=== PATIENT | female | born 1950 | race Caucasian/White ===

== ENCOUNTER 2017-09-06 16:34 | Emergency (ER) | payer MEDICARE ==
[2017-09-06 16:48] VITALS: BP 131/64
--- NOTE | 2017-09-06 17:35 | UC ---
Throat Pain/Nasal Shar HPI - HPI Summary HPI Summary: 66 yo WF h/o MS c/o sore throat x 1 day, has h/o of MS so is concerned about catching strep infection earlier than later. Pt c/o generalized malaise, but no f/c/n/v/d, neg cough but c/o nasal congestion. - History of Current Complaint Chief Complaint: UCGeneralIllness Stated Complaint: THROAT PAIN Time Seen by Provider: 09/06/17 17:10 Onset/Duration: Sudden Onset Severity: Mild - Allergies/Home Medications Allergies/Adverse Reactions: Allergies Allergy/AdvReac Type Severity Reaction Status Date / Time Pollen Extract Allergy Unknown Unknown Verified 09/06/17 16:45 Reaction Details enviromental Allergy Mild stuffy nose Uncoded 09/06/17 16:45 perfumes Allergy Mild left arm Uncoded 09/06/17 16:45 gets numb and itching Home Medications: Home Medications Calcitriol CAP* [Rocaltrol CAP*] 0.25 cap PO DAILY 09/06/17 [History Confirmed 09/06/17] PMH/Surg Hx/FS Hx/Imm Hx - Surgical History Surgical History: Yes Surgery Procedure, Year, and Place: tonsillectomy,. LAPROSCOPY- [facility] - Social History Alcohol Use: None Substance Use Type: None Smoking Status (MU): Never Smoked Tobacco Review of Systems Constitutional: Fatigue - malaise Skin: Negative Eyes: Negative ENT: Sore Throat, Sinus Congestion Respiratory: Negative Cardiovascular: Negative Gastrointestinal: Negative Genitourinary: Negative Motor: Negative Neurovascular: Negative Musculoskeletal: Negative Neurological: Negative Psychological: Negative All Other Systems Reviewed And Are Negative: Yes Physical Exam Triage Information Reviewed: Yes Appearance: No Pain Distress Vital Signs: Initial Vital Signs Temp 36.4 C 09/06/17 16:46 Pulse 103 09/06/17 16:46 Resp 18 09/06/17 16:46 BP 131/64 09/06/17 16:46 Pulse Ox 100 09/06/17 16:46 Vital Signs Reviewed: Yes Eye Exam: Normal ENT: Positive: Pharyngeal erythema, TMs normal. Negative: Nasal congestion, Nasal drainage, Tonsillar exudate Neck exam: Normal Respiratory: Positive: Lungs clear Cardiovascular: Positive: RRR Musculoskeletal Exam: Normal Neurological Exam: Normal Psychological Exam: Normal Skin Exam: Normal Throat Pain/Nasal Course/Dx - Course Course Of Treatment: Rapid strep and flu neg, pt likely has viral illness in early phase, supportive tx advised, PO Pseudoephedrine for nasal congestion as prescribed. - Differential Dx/Diagnosis Provider Diagnoses: Viral illness, nasal congestion Discharge - Discharge Plan Condition: Stable Disposition: HOME Prescriptions: Pseudoephedrine HCL ER TAB* [Sudafed 12 Hour*] 120 mg PO BID 5 Days #10 tab.er Patient Education Materials: Viral Syndrome (ED) Referrals: Jeferson Krueger MD [Primary Care Provider] -
== END 2017-09-06 17:57 | disposition home or self-care (01) ==
LOC: UCEAST 16:34
DX: B34.9 Viral infection, unspecified (principal); R09.81 Nasal congestion
CPT/HCPCS: 87502; 87651; 99212; G0463

== ENCOUNTER 2017-12-01 17:45 | Emergency (ER) | payer MEDICARE ==
[2017-12-01 18:03] VITALS: BP 124/74
--- NOTE | 2017-12-01 18:12 | UC ---
Knee Pain HPI - HPI Summary HPI Summary: Pt presents with right knee pain for the last 5 days. She tells me that she suffers from MS and DM2. She lives alone in her apartment, but is accompanied today by her daughter. Pt says that, due to her illnesses, she uses a wheelchair when she is out, but around the house is ambulatory without assistance. During the last 5 days, however, pt has been using the wheelchair in her home due to her right knee pain. She also has not bathed every day because of this pain. Denies injury. - History of Current Complaint Chief Complaint: UCLowerExtremity Stated Complaint: KNEE PAIN Time Seen by Provider: 12/01/17 18:11 Hx Obtained From: Patient, Family/Typesetters Printer Hx Last Menstrual Period: post menopause Severity Initially: Moderate Severity Currently: Severe Pain Intensity: 9 Pain Scale Used: 0-10 Numeric Character: Aching Aggravating Factor(s): Weight Bearing Alleviating Factor(s): Rest - Allergies/Home Medications Allergies/Adverse Reactions: Allergies Allergy/AdvReac Type Severity Reaction Status Date / Time MS Pollen Extract Allergy Unknown Unknown Verified 12/01/17 18:04 [Pollen Extract] Reaction Details enviromental Allergy Mild stuffy nose Uncoded 12/01/17 18:04 perfumes Allergy Mild left arm Uncoded 12/01/17 18:04 gets numb and itching PMH/Surg Hx/FS Hx/Imm Hx - Additional Past Medical History Additional PMH: MS DM2 CKD - Surgical History Surgical History: Yes Surgery Procedure, Year, and Place: tonsillectomy,. LAPROSCOPY- [facility] - Social History Occupation: Disabled Lives: Alone Alcohol Use: None Substance Use Type: Marijuana Smoking Status (MU): Never Smoked Tobacco Review of Systems Constitutional: Negative Skin: Negative Respiratory: Negative Cardiovascular: Negative Gastrointestinal: Negative Musculoskeletal: Other: - Pain right knee Neurological: Negative Psychological: Negative All Other Systems Reviewed And Are Negative: Yes Physical Exam Triage Information Reviewed: Yes Appearance: Well-Appearing, No Pain Distress, Well-Nourished Vital Signs: Initial Vital Signs Temp 97.2 F 12/01/17 17:53 Pulse 64 12/01/17 17:53 Resp 16 12/01/17 17:53 BP 124/74 12/01/17 17:53 Pulse Ox 95 12/01/17 17:53 Vital Signs Reviewed: Yes Neck: Positive: Supple, Nontender, No Lymphadenopathy Respiratory: Positive: Lungs clear, Normal breath sounds, No respiratory distress Cardiovascular: Positive: RRR, No Murmur, Pulses Normal - Right DP and TP Musculoskeletal: Positive: Strength Intact - Right knee, ROM Intact - Right knee , No Edema - Right knee, Other: - NTTP right knee. No obvious bony deformities. No patella apprehension. Negative Doroteo, A/P drawer, Hitesh, and varus/ valgus stress. Neurological: Positive: Alert Skin: Negative: rashes, significant lesion(s) Knee Pain Course/Dx - Course Course Of Treatment: I had a long conversation with the pt regarding her knee pain. She refuses to get an XR today because she has very high anxiety and the XR table makes her have a panic attack. She tells me that she wants to "live with the pain". I will try her with Voltaren gel and an YVONNE wrap with the suspicion of osteoarthritis and have her f/u with Orthopedics for further eval and treatment. I offered her a cane or walker to use at home, but she refused. - Differential Dx/Diagnosis Provider Diagnoses: Right knee pain Discharge - Discharge Plan Condition: Stable Disposition: HOME Prescriptions: Diclofenac 1% GEL (NF) [Voltaren 1% GEL (NF)] 1 applic TOPICAL BID PRN #1 tube PRN Reason: Pain Patient Education Materials: Osteoarthritis (DC) Referrals: Jeferson Krueger MD [Primary Care Provider] - Deandre Dias MD [Medical Doctor] - If Needed Additional Instructions: If you develop a fever, shortness of breath, chest pain, new or worsening symptoms - please call your PCP or go to the ED. 1) May use the Diclofenac gel on your knee twice a day as needed for pain 2) Please call Orthopedics at the number below for further evaluation of your knee pain
== END 2017-12-01 18:57 | disposition home or self-care (01) ==
LOC: UCEAST 17:45
DX: M25.561 Pain in right knee (principal); G35 Multiple sclerosis; E11.22 Type 2 diabetes mellitus with diabetic chronic kidney disease; N18.9 Chronic kidney disease, unspecified
CPT/HCPCS: 99212; G0463

== ENCOUNTER 2018-03-31 12:25 | Emergency (ER) | payer MEDICARE ==
--- OUTSIDE RECORDS SUMMARY | 2018-03-31 13:19 | XMS REPORT ---
:1950 External Reference #:[id number] Author Organization [email or web address] Address [address] [address] Phone [phone] Care Team Providers Name Role Phone Jeferson Krueger MD Primary Care Physician Unavailable Payers Type Date Identification Numbers Payment Provider Subscriber Medicare Primary Effective: Policy Number: Medicare Lluvia Lassiter 2005 [id number] Expires: 2012 PayID: [id number] [address] [place] [address] Commercial Effective: Policy Number: saskia Dorsey/Pablo Lluvia Lassiter 2012 [id number] Options PayID: [id number] [address] [address] Attn: [place] [address] Problems Date Description Provider Status Onset: 12/19/2014 Relapsing remitting multiple sclerosis Chana Pugh M.D. Active Onset: 12/19/2014 Anxiety Chana Pugh M.D. Active Onset: 12/19/2014 Fatigue Chana Pugh M.D. Active Onset: 12/09/2016 Mild cognitive disorder Chana Pugh M.D. Active Note: MoCA 06/18: 21; MoCA 12/18: 20 Social History Type Date Description Comments ETOH Use Never used alcohol Smoking Patient is a former smoker Allergies, Adverse Reactions, Alerts Date Description Reaction Status Severity Comments 01/02/2013 NKDA active Medications Medication Date Status Form Strength Qnty SIG Indications Ordering Provider Valium 08/08/ Active Tablets 5mg 2tabs 1 by Chana Lu mouth 2 [place], hours M.D. prior to MRI may take one after an hour if still anxious and not sedated. Betaseron 01/02/ Active Kit 0.3mg 3units inject sc G35 Chana 2012 every [place], other M.D. day, send for 3 kits=3 month supply. (1 kit=1 mo supply/14 syringes) Rozerem 00/ Active Tablets 8mg 1 tab po Unknown 0000 qhs Alprazolam / Active Tablets 0.25mg 20tabs one by Unknown 0000 mouth every day Lisinopril / Active Tablets 2.5mg 30tabs 1 po qd Unknown 0000 Multivitamins / Active Capsules 30caps 1 capsule Unknown 0000 lauren;y Vitamin C / Active Tablets 1000mg 1 po qd Unknown 0000 Vitamin B-12 / Active Tablets 1 sl Unknown 0000 Sub daily Vitamin D High / Active Capsules 1000Unit 1 by Unknown Potency 0000 mouth every day Ferrous Sulfate / Active Tablets 325mg 1 by Unknown 0000 mouth a day Sertraline HCL / Active Tablets 50mg 1 by Unknown 0000 mouth every day Calcitriol / Active Capsules 0.25mcg 1 by Unknown 0000 mouth every day Fish Oil / Active Capsules 1200mg pt unsure Unknown 0000 of the dose. 2 daily Probiotic / Active Capsules 1 by Unknown 0000 mouth every day Valium 10/01/ Hx Tablets 2mg 2tabs take 1 Chana 2013 - one hour Cow[place]y, 12/16/ prior to M.D. 2017 mri, may repeat x 1 if not sedated and still anxious. Fluoxetine HCL / Hx Tablets 20mg 30tabs 1 po qd Unknown 0000 - 2017 Janumet / Hx Tablets 50-500mg 180tab 1 po bid Unknown 0000 - s 2017 Calcium / Hx Tablets 334-134-5m 1 tab po Unknown Magnesium & 0000 - g daily Zinc 2014 Vitamin D // Hx (?) 1 po Unknown 0000 - daily 2013 Fish Oil / Hx 1000mg 1 cap po Unknown 0000 - daily 2014 Boswellia / Hx Powder 1 po bid Unknown Kale Extract 0000 - 2016 Iron / Hx Tablets pt unsure Unknown 0000 - of the dose. one 2018 daily Vital Signs Date Vital Result Comment 03/04/2018 Height 63 inches 5'3" Heart Rate 80 /min BP Systolic Sitting 106 mmHg BP Diastolic Sitting 70 mmHg Respiratory Rate 16 /min 12/17/2017 Height 63 inches 5'3" Weight 146.00 lb Heart Rate 88 /min BP Systolic Sitting 98 mmHg BP Diastolic Sitting 58 mmHg Respiratory Rate 15 /min BMI (Body Mass Index) 25.9 kg/m2 12/09/2016 Height 64 inches 5'4" Weight 141.00 lb Heart Rate 84 /min BP Systolic Sitting 98 mmHg BP Diastolic Sitting 62 mmHg Respiratory Rate 14 /min BMI (Body Mass Index) 24.2 kg/m2 12/16/2015 Height 64 inches 5'4" Weight 155.00 lb Heart Rate 80 /min BP Systolic Sitting 130 mmHg BP Diastolic Sitting 76 mmHg Respiratory Rate 17 /min BMI (Body Mass Index) 26.6 kg/m2 06/19/2015 Height 64 inches 5'4" Weight 155.00 lb Heart Rate 84 /min BP Systolic Sitting 122 mmHg BP Diastolic Sitting 70 mmHg Respiratory Rate 14 /min BMI (Body Mass Index) 26.6 kg/m2 12/19/2014 Height 64 inches 5'4" Weight 158.00 lb Heart Rate 76 /min BP Systolic Sitting 110 mmHg BP Diastolic Sitting 70 mmHg Respiratory Rate 17 /min BMI (Body Mass Index) 27.1 kg/m2 06/06/2014 Height 64 inches 5'4" Weight 158.00 lb Heart Rate 100 /min BP Systolic Sitting 110 mmHg BP Diastolic Sitting 70 mmHg Respiratory Rate 16 /min BMI (Body Mass Index) 27.1 kg/m2 08/24/2013 Heart Rate 84 /min BP Systolic Sitting 112 mmHg BP Diastolic Sitting 62 mmHg Respiratory Rate 16 /min 01/02/2013 Heart Rate 90 /min BP Systolic Sitting 120 mmHg BP Diastolic Sitting 70 mmHg Respiratory Rate 16 /min Results Test Date Test Result H/L Range Note CBC Auto Diff 06/21/2017 White Blood Count 8.1 10^3/uL 3.5-10.8 Red Blood Count 3.52 10^6/uL Low 4.0-5.4 Hemoglobin 10.2 g/dL Low 12.0-16.0 Hematocrit 31 % Low 35-47 Mean Corpuscular Volume 89 fL 80-97 Mean Corpuscular Hemoglobin 29 pg 27-31 Mean Corpuscular HGB Conc 33 g/dL 31-36 Red Cell Distribution Width 14 % 10.5-15 Platelet Count 295 10^3/uL 150-450 Mean Platelet Volume 9 um3 7.4-10.4 Abs Neutrophils 5.7 10^3/uL 1.5-7.7 Abs Lymphocytes 1.7 10^3/uL 1.0-4.8 Abs Monocytes 0.5 10^3/uL 0-0.8 Abs Eosinophils 0.2 10^3/uL 0-0.6 Abs Basophils 0 10^3/uL 0-0.2 Abs Nucleated RBC 0 10^3/uL Granulocyte % 70.4 % 38-83 Lymphocyte % 21.1 % Low 25-47 Monocyte % 6.0 % 1-9 Eosinophil % 1.9 % 0-6 Basophil % 0.6 % 0-2 Nucleated Red Blood Cells % 0 Liver Function Panel 06/21/2017 Total Protein 7.5 g/dL 6.4-8.9 Albumin 4.2 g/dL 3.2-5.2 Globulin 3.3 g/dL 2-4 Albumin/Globulin Ratio 1.3 1-3 Total Bilirubin 0.30 mg/dL 0.2-1.0 Direct Bilirubin 0.00 mg/dL Low 0.03-0.18 Alkaline Phosphatase 77 U/L 34-104 Alt 15 U/L 7-52 Ast 18 U/L 13-39 Laboratory test finding 06/21/2017 Vitamin D Total 25(Oh) 45.4 ng/mL 20- 50 Comp Metabolic Panel 06/21/2017 Sodium 138 mmol/L 133-145 Potassium 3.1 mmol/L Low 3.5-5.0 Chloride 102 mmol/L 101-111 Co2 Carbon Dioxide 26 mmol/L 22-32 Anion Gap 10 mmol/L 2-11 Glucose 125 mg/dL High 70-100 Blood Urea Nitrogen 41 mg/dL High 6-24 Creatinine 2.58 mg/dL High 0.51-0.95 BUN/Creatinine Ratio 15.9 8-20 Calcium 10.7 mg/dL High 8.6-10.3 Total Protein 7.5 g/dL 6.4-8.9 Albumin 4.2 g/dL 3.2-5.2 Globulin 3.3 g/dL 2-4 Albumin/Globulin Ratio 1.3 1-3 Total Bilirubin 0.30 mg/dL 0.2-1.0 Alkaline Phosphatase 75 U/L 34-104 Alt 15 U/L 7-52 Ast 19 U/L 13-39 Egfr Non- 18.6 >60 Egfr 23.9 >60 1 CBC Auto Diff 12/09/2016 White Blood Count 9.3 10^3/uL 3.5-10.8 Red Blood Count 3.55 10^6/uL Low 4.0-5.4 Hemoglobin 10.1 g/dL Low 12.0-16.0 Hematocrit 32 % Low 35-47 Mean Corpuscular Volume 89 fL 80-97 Mean Corpuscular Hemoglobin 28 pg 27-31 Mean Corpuscular HGB Conc 32 g/dL 31-36 Red Cell Distribution Width 16 % High 10.5-15 Platelet Count 257 10^3/uL 150-450 Mean Platelet Volume 9 um3 7.4-10.4 Abs Neutrophils 6.6 10^3/uL 1.5-7.7 Abs Lymphocytes 1.8 10^3/uL 1.0-4.8 Abs Monocytes 0.6 10^3/uL 0-0.8 Abs Eosinophils 0.2 10^3/uL 0-0.6 Abs Basophils 0.1 10^3/uL 0-0.2 Abs Nucleated RBC 0 10^3/uL Granulocyte % 71.5 % 38-83 Lymphocyte % 19.2 % Low 25-47 Monocyte % 6.2 % 1-9 Eosinophil % 2.3 % 0-6 Basophil % 0.8 % 0-2 Nucleated Red Blood Cells % 0 Liver Function Panel 12/09/2016 Total Protein 7.6 g/dL 6.4-8.9 Albumin 4.4 g/dL 3.2-5.2 Globulin 3.2 g/dL 2-4 Albumin/Globulin Ratio 1.4 1-3 Total Bilirubin 0.30 mg/dL 0.2-1.0 Direct Bilirubin 0.10 mg/dL 0.03-0.18 Indirect Bilirubin 0.2 mg/dL Low 0.3-1.0 Alkaline Phosphatase 78 U/L 34-104 Alt 15 U/L 7-52 Ast 14 U/L 13-39 CBC Auto Diff 12/16/2015 White Blood Count 8.3 10^3/uL 3.5-10.8 Red Blood Count 3.71 10^6/uL Low 4.0-5.4 Hemoglobin 10.7 g/dL Low 12.0-16.0 Hematocrit 33 % Low 35-47 Mean Corpuscular Volume 88 fL 80-97 Mean Corpuscular Hemoglobin 29 pg 27-31 Mean Corpuscular HGB Conc 33 g/dL 31-36 Red Cell Distribution Width 16 % High 10.5-15 Platelet Count 247 10^3/uL 150-450 Mean Platelet Volume 9 um3 7.4-10.4 Abs Neutrophils 5.4 10^3/uL 1.5-7.7 Abs Lymphocytes 2.0 10^3/uL 1.0-4.8 Abs Monocytes 0.6 10^3/uL 0-0.8 Abs Eosinophils 0.2 10^3/uL 0-0.6 Abs Basophils 0 10^3/uL 0-0.2 Abs Nucleated RBC 0.01 10^3/uL Granulocyte % 65.1 % 38-83 Lymphocyte % 24.4 % Low 25-47 Monocyte % 7.1 % 1-9 Eosinophil % 2.8 % 0-6 Basophil % 0.6 % 0-2 Nucleated Red Blood Cells % 0.1 Liver Function Panel 12/16/2015 Total Protein 7.2 g/dL 6.4-8.9 Albumin 4.3 g/dL 3.2-5.2 Globulin 2.9 g/dL 2-4 Albumin/Globulin Ratio 1.5 1-3 Total Bilirubin 0.20 mg/dL 0.2-1.0 Direct Bilirubin 0.00 mg/dL Low 0.03-0.18 Alkaline Phosphatase 68 U/L 34-104 Alt 24 U/L 7-52 Ast 19 U/L 13-39 Laboratory test finding 12/16/2015 Vitamin D Total 25(Oh) 50.9 ng/mL High 30-50 2 Creatinine 10/03/2015 Creatinine 1.70 mg/dL High 0.51-0.95 Egfr Non- 30.2 >60 Egfr 38.8 >60 3 CBC Auto Diff 02/08/2015 White Blood Count 8.5 10^3/uL 4.8-10.8 Red Blood Count 3.47 10^6/uL Low 4.0-5.4 Hemoglobin 10.2 g/dL Low 12.0-16.0 Hematocrit 31 % Low 35-47 Mean Corpuscular Volume 89 fL 80-97 Mean Corpuscular Hemoglobin 30 pg 27-31 Mean Corpuscular HGB Conc 33 g/dL 31-36 Red Cell Distribution Width 17 % High 10.5-15 Platelet Count 274 10^3/uL 150-450 Mean Platelet Volume 8 um3 7.4-10.4 Abs Neutrophils 5.5 10^3/uL 1.5-7.7 Abs Lymphocytes 1.9 10^3/uL 1.0-4.8 Abs Monocytes 0.6 10^3/uL 0-0.8 Abs Eosinophils 0.4 10^3/uL 0-0.6 Abs Basophils 0.1 10^3/uL 0-0.2 Abs Nucleated RBC 0 10^3/uL Granulocyte % 65.1 % 38-83 Lymphocyte % 22.3 % Low 25-47 Monocyte % 6.8 % 1-9 Eosinophil % 4.8 % 0-6 Basophil % 1.0 % 0-2 Nucleated Red Blood Cells % 0 Retic Count 02/08/2015 Retic Count 1.5 % 0.5-1.5 Corrected Retic Count 1.0 % 0.5-1.5 Maturation Factor Retic 1.5 Retic Index 0.70 Mean Retic Volume 112.0 Immature Retic Fraction 0.51 RBC Retic Count 3.47 10^6/uL Low 4.6-6.2 Hematocrit for Retic CNT 31 % Low 35-47 Comp Metabolic Panel 02/08/2015 Sodium 137 mmol/L 133-145 Potassium 3.5 mmol/L 3.5-5.0 Chloride 103 mmol/L 101-111 Co2 Carbon Dioxide 24 mmol/L 22-32 Anion Gap 10 mmol/L 2-11 Glucose 101 mg/dL High 70-100 Blood Urea Nitrogen 25 mg/dL High 6-24 Creatinine 1.67 mg/dL High 0.51-0.95 BUN/Creatinine Ratio 15.0 8-20 Calcium 10.2 mg/dL 8.6-10.3 Total Protein 6.9 g/dL 6.4-8.9 Albumin 4.0 g/dL 3.2-5.2 Globulin 2.9 g/dL 2-4 Albumin/Globulin Ratio 1.4 1-3 Total Bilirubin 0.30 mg/dL 0.2-1.0 Alkaline Phosphatase 68 U/L 34-104 Alt 17 U/L 7-52 Ast 16 U/L 13-39 Egfr Non- 30.9 >60 Egfr 39.7 >60 4 Iron & Iron Binding Capacity 02/08/2015 Iron 49 g/dL Low 50-212 Unsaturated Iron Binding 326 g/dL Total Iron Binding Capacity 375 g/dL 250-450 % Iron Saturation 13 % Low 15-55 Laboratory test finding 02/08/2015 Ferritin 35.6 ng/mL 11-307 Hemoglobin A1c 6.3 % High Less than 6.0 5 Vitamin B12 And Folate Serum 12/19/2014 Vitamin B12 > 1450 pg/mL High 180- 914 6 Folate > 20.00 ng/mL >3.99 Laboratory test finding 12/19/2014 TSH (Thyroid Stimulating 1.93 IU/mL 0.34-5.60 Horm) Comp Metabolic Panel 12/19/2014 Sodium 139 mmol/L 133-145 Potassium 4.1 mmol/L 3.5-5.0 Chloride 102 mmol/L 101-111 Co2 Carbon Dioxide 28 mmol/L 22-32 Anion Gap 9 mmol/L 2-11 Glucose 103 mg/dL High 70-100 Blood Urea Nitrogen 31 mg/dL High 6-24 Creatinine 1.55 mg/dL High 0.51-0.95 BUN/Creatinine Ratio 20.0 8-20 Calcium 10.2 mg/dL 8.6-10.3 Total Protein 7.5 g/dL 6.4-8.9 Albumin 4.3 g/dL 3.2-5.2 Globulin 3.2 g/dL 2-4 Albumin/Globulin Ratio 1.3 1-3 Total Bilirubin 0.20 mg/dL 0.2-1.0 Alkaline Phosphatase 67 U/L 34-104 Alt 24 U/L 7-52 Ast 20 U/L 13-39 Egfr Non- 33.7 >60 Egfr 43.3 >60 7 CBC Auto Diff 12/19/2014 White Blood Count 8.3 10^3/uL 4.8-10.8 Red Blood Count 3.73 10^6/uL Low 4.0-5.4 Hemoglobin 10.9 g/dL Low 12.0-16.0 Hematocrit 33 % Low 35-47 Mean Corpuscular Volume 88 fL 80-97 Mean Corpuscular Hemoglobin 29 pg 27-31 Mean Corpuscular HGB Conc 33 g/dL 31-36 Red Cell Distribution Width 16 % High 10.5-15 Platelet Count 304 10^3/uL 150-450 Mean Platelet Volume 8 um3 7.4-10.4 Abs Neutrophils 5.4 10^3/uL 1.5-7.7 Abs Lymphocytes 2.0 10^3/uL 1.0-4.8 Abs Monocytes 0.5 10^3/uL 0-0.8 Abs Eosinophils 0.3 10^3/uL 0-0.6 Abs Basophils 0.1 10^3/uL 0-0.2 Abs Nucleated RBC 0 10^3/uL Granulocyte % 65.6 % 38-83 Lymphocyte % 23.6 % Low 25-47 Monocyte % 6.4 % 1-9 Eosinophil % 3.8 % 0-6 Basophil % 0.6 % 0-2 Nucleated Red Blood Cells % 0 Liver Function Panel 05/17/2014 Total Protein 7.3 g/dL 6.4-8.9 Albumin 4.1 g/dL 3.2-5.2 Globulin 3.2 g/dL 2-4 Albumin/Globulin Ratio 1.3 1-3 Total Bilirubin 0.30 mg/dL 0.2-1.0 Direct Bilirubin 0.10 mg/dL 0.03-0.18 Indirect Bilirubin 0.2 mg/dL Low 0.3-1.0 Alkaline Phosphatase 78 U/L 34-104 Alt 25 U/L 7-52 Ast 24 U/L 13-39 CBC Auto Diff 05/17/2014 White Blood Count 7.2 10^3/uL 4.8-10.8 Red Blood Count 3.51 10^6/uL Low 4.0-5.4 Hemoglobin 10.4 g/dL Low 12.0-16.0 Hematocrit 31 % Low 35-47 Mean Corpuscular Volume 88 fL 80-97 Mean Corpuscular Hemoglobin 30 pg 27-31 Mean Corpuscular HGB Conc 34 g/dL 31-36 Red Cell Distribution Width 15 % 10.5-15 Platelet Count 261 10^3/uL 150-450 Mean Platelet Volume 9 um3 7.4-10.4 Abs Neutrophils 4.7 10^3/uL 1.5-7.7 Abs Lymphocytes 1.6 10^3/uL 1.0-4.8 Abs Monocytes 0.5 10^3/uL 0-0.8 Abs Eosinophils 0.3 10^3/uL 0-0.6 Abs Basophils 0.1 10^3/uL 0-0.2 Abs Nucleated RBC 0 10^3/uL Granulocyte % 65.5 % 38-83 Lymphocyte % 22.6 % Low 25-47 Monocyte % 7.0 % 1-9 Eosinophil % 3.9 % 0-6 Basophil % 1.0 % 0-2 Nucleated Red Blood Cells % 0.1 Creatinine 08/08/2013 Creatinine 1.40 mg/dL 0.50-1.40 Egfr Non- 38.1 >60 Egfr 49.0 >60 8 Laboratory test finding 08/08/2013 Blood Urea Nitrogen 35 mg/dL High 6-24 Urinalysis 06/08/2013 Urine Color Yellow Urine Appearance Clear Urine Specific [place] 1.016 1.010-1.030 Urine Esterase Negative Negative Urine Nitrate Negative Negative Urine Urobilinogen Negative E.U./dL Negative Urine Protein 1+ mg/dL Negative Urine pH 6.0 5-9 Urine Blood Negative Negative Urine Ketones Negative mg/dL Negative Urine Bilirubin Negative Negative Urine Glucose Negative mg/dL Negative Urine Microscopic 06/08/2013 Urine WBC None Seen None Seen Urine RBC None Seen None Seen Urine Epithelial Cells 3+ Squamous /hpf None Seen Bacteria Urine 2+ None Seen Crystals Urine Calcium Oxalate /lpf None Seen Comp Metabolic Panel 06/08/2013 Sodium 141 mmol/L 133-145 Potassium 4.2 mmol/L 3.5-5.0 Chloride 103 mmol/L 101-111 Co2 Carbon Dioxide 28.0 mmol/L 22-32 Anion Gap 10.0 mmol/L 2-11 Glucose 122 mg/dL High 70-100 Blood Urea Nitrogen 27 mg/dL High 6-24 Creatinine 1.30 mg/dL 0.50-1.40 BUN/Creatinine Ratio 20.8 High 8-20 Calcium 10.5 mg/dL High 8.1-9.9 Total Protein 7.5 g/dL 6.2-8.1 Albumin 3.7 g/dL 3.2-5.2 Globulin 3.8 g/dL 2-4 Albumin/Globulin Ratio 1.0 1-3 Total Bilirubin 0.4 mg/dL 0.4-1.5 Alkaline Phosphatase 78 U/L 30-110 Alt 26 U/L 14-54 Ast 27 U/L 12-42 Egfr Non- 41.5 >60 Egfr 53.4 >60 9 Liver Function Panel 06/08/2013 Total Protein 6.5 g/dL 6.2-8.1 Albumin 3.8 g/dL 3.2-5.2 Globulin 2.7 g/dL 2-4 Albumin/Globulin Ratio 1.4 1-3 Total Bilirubin 0.5 mg/dL 0.4-1.5 Direct Bilirubin 0.1 mg/dL 0.1-0.5 Indirect Bilirubin 0.4 mg/dL 0.3-1.0 Alkaline Phosphatase 77 U/L 30-110 Alt 26 U/L 14-54 Ast 27 U/L 12-42 CBC With Manual Diff 06/08/2013 White Blood Count 6.8 10^3/uL 4.8-10.8 Red Blood Count 3.87 10^6/uL Low 4.0-5.4 Hemoglobin 11.1 g/dL Low 12.0-16.0 Hematocrit 34 % Low 35-47 Mean Corpuscular Volume 88 fL 80-97 Mean Corpuscular Hemoglobin 29 pg 27-31 Mean Corpuscular HGB Conc 33 g/dL 31-36 Red Cell Distribution Width 15 % 10.5-15 Platelet Count 236 10^3/uL 150-450 Mean Platelet Volume 9 um3 7.4-10.4 Abs Neutrophils 4.3 10^3/uL 1.5-7.7 Abs Lymphocytes 1.8 10^3/uL 1.0-4.8 Abs Monocytes 0.4 10^3/uL 0-0.8 Abs Eosinophils 0.4 10^3/uL 0-0.6 Abs Basophils 0 10^3/uL 0-0.2 Abs Nucleated RBC 0 10^3/uL Neutrophil % 59 % 38-83 Lymphocytes % 30 % 25-47 Monocytes % 4 % 0-13 Eosinophils % 7 % High 0-6 RBC Morphology Normal Normal 1 Because ethnic data is not always readily available, this report includes an eGFR for both -Americans and non- Americans. The National Kidney Disease Education Program (NKDEP) does not endorse the use of the MDRD equation for patients that are not between the ages of 18 and 70, are , have extremes of body size, muscle mass, or nutritional status, or are non- or non-. According to the National Kidney Foundation, irrespective of diagnosis, the stage of the disease is based on the level of kidney function: Stage Description GFR(mL/min/1.73 m(2)) 1 Kidney damage with normal or decreased GFR 90 2 Kidney damage with mild decrease in GFR 60-89 3 Moderate decrease in GFR 30-59 4 Severe decrease in GFR 15-29 5 Kidney failure <15 (or dialysis) 2 August or later 3 Because ethnic data is not always readily available, this report includes an eGFR for both -Americans and non- Americans. The National Kidney Disease Education Program (NKDEP) does not endorse the use of the MDRD equation for patients that are not between the ages of 18 and 70, are , have extremes of body size, muscle mass, or nutritional status, or are non- or non-. According to the National Kidney Foundation, irrespective of diagnosis, the stage of the disease is based on the level of kidney function: Stage Description GFR(mL/min/1.73 m(2)) 1 Kidney damage with normal or decreased GFR 90 2 Kidney damage with mild decrease in GFR 60-89 3 Moderate decrease in GFR 30-59 4 Severe decrease in GFR 15-29 5 Kidney failure <15 (or dialysis) 4 Because ethnic data is not always readily available, this report includes an eGFR for both -Americans and non- Americans. The National Kidney Disease Education Program (NKDEP) does not endorse the use of the MDRD equation for patients that are not between the ages of 18 and 70, are , have extremes of body size, muscle mass, or nutritional status, or are non- or non-. According to the National Kidney Foundation, irrespective of diagnosis, the stage of the disease is based on the level of kidney function: Stage Description GFR(mL/min/1.73 m(2)) 1 Kidney damage with normal or decreased GFR 90 2 Kidney damage with mild decrease in GFR 60-89 3 Moderate decrease in GFR 30-59 4 Severe decrease in GFR 15-29 5 Kidney failure <15 (or dialysis) 5 Therapeutic target for the treatment of diabetes Mellitus patients is <7% HBA1C, and in selective patients <6.0%.Please refer to [place] [employer] Diabetic care guidelines for further information. 6 Normal Range 180 to 914 Indeterminate Range 145 to 180 Deficient Range <145 7 Because ethnic data is not always readily available, this report includes an eGFR for both -Americans and non- Americans. The National Kidney Disease Education Program (NKDEP) does not endorse the use of the MDRD equation for patients that are not between the ages of 18 and 70, are , have extremes of body size, muscle mass, or nutritional status, or are non- or non-. According to the National Kidney Foundation, irrespective of diagnosis, the stage of the disease is based on the level of kidney function: Stage Description GFR(mL/min/1.73 m(2)) 1 Kidney damage with normal or decreased GFR 90 2 Kidney damage with mild decrease in GFR 60-89 3 Moderate decrease in GFR 30-59 4 Severe decrease in GFR 15-29 5 Kidney failure <15 (or dialysis) 8 Because ethnic data is not always readily available, this report includes an eGFR for both -Americans and non- Americans. The National Kidney Disease Education Program (NKDEP) does not endorse the use of the MDRD equation for patients that are not between the ages of 18 and 70, are , have extremes of body size, muscle mass, or nutritional status, or are non- or non-. According to the National Kidney Foundation, irrespective of diagnosis, the stage of the disease is based on the level of kidney function: Stage Description GFR(mL/min/1.73 m(2)) 1 Kidney damage with normal or decreased GFR 90 2 Kidney damage with mild decrease in GFR 60-89 3 Moderate decrease in GFR 30-59 4 Severe decrease in GFR 15-29 5 Kidney failure <15 (or dialysis) 9 Because ethnic data is not always readily available, this report includes an eGFR for both -Americans and non- Americans. The National Kidney Disease Education Program (NKDEP) does not endorse the use of the MDRD equation for patients that are not between the ages of 18 and 70, are , have extremes of body size, muscle mass, or nutritional status, or are non- or non-. According to the National Kidney Foundation, irrespective of diagnosis, the stage of the disease is based on the level of kidney function: Stage Description GFR(mL/min/1.73 m(2)) 1 Kidney damage with normal or decreased GFR 90 2 Kidney damage with mild decrease in GFR 60-89 3 Moderate decrease in GFR 30-59 4 Severe decrease in GFR 15-29 5 Kidney failure <15 (or dialysis) Procedures Date CPT Code Description Status 01/19/2018 93915 Nerve Conduction 03-04 Studies Completed Encounters Type Date Location Provider CPT E/M Dx Office Visit 12/17/2017 3:15p [facility] Chana Pugh M.D. 30830 [facility] [employer] F41.9 G31.84 R42 R53.83 R20.2 Office Visit 12/09/2016 11:00a [facility] Chana Pugh M.D. 55372 [facility] [employer] [facility] F41.9 R42 G31.84 Office Visit 12/16/2015 1:30p [facility] Chana Pugh M.D. 21643 [facility] R53.83 Z79.899 F41.9 Office Visit 06/19/2015 1:30p [facility] Chana Pugh M.D. 74057 340 [facility] 780.79 300.00 799.59 268.9 Office Visit 12/19/2014 1:00p [facility] Chana Pugh M.D. 82272 [address] [facility] 780.79 300.00 799.59 Office Visit 06/06/2014 1:00p [facility] Chana Pugh M.D. 48091 340 [facility] 780.79 Office Visit 08/24/2013 2:30p [facility] Chana Pugh M.D. 33814 340 [facility] Office Visit 06/16/2013 2:00p [facility] Chana Pugh M.D. 17210 340 [facility] Office Visit 01/02/2013 3:00p [facility] Chana Pugh M.D. 38440 340 [facility] 780.79 300.00 Office Visit 07/04/2012 2:45p [facility] Chana Pugh M.D. 86910 [address] [facility] 780.79 300.02 Plan of Care Future Appointment(s):09/09/2018 3:00 pm - Chana Pugh M.D. at [facility] [address]03/04/2018 - Chana Pugh M.D.G35 Multiple sclerosisFollow up:6 months (30 min)F41.9 Anxiety disorder, nnodiljvageO39.84 Mild cognitive impairment, so stated
[2018-03-31 14:21] VITALS: BP 127/78
--- NOTE | 2018-03-31 18:30 | ED ---
Rashid Anton Angela, scribed for Syed Gardner MD on 03/31/18 at 1313 . Psychiatric Complaint - HPI Summary HPI Summary: This pt is a 67 y/o female presenting to [facility] via EMS for a panic attack today. Pt reports she has been having panic attacks "for a long time." She states she takes medications to deal with this. Today her neighbor called the ambulance as the pt was not moving and not acting right. Pt reports "I think my neighbor jumped the gun today." She states her neighbor has never witnessed her panic attacks in the past and did not know what was wrong with the pt. Pt denies SI or HI thoughts/plan. Per EMS pt was sitting in the hallway and not moving. EMS reports the pt's neighbor stated pt is not taking care of herself at home. Pt admits to taking all her medications as prescribed, but she has not taken them today yet as she has not had the chance to. She ambulates at home independently but states she uses a wheelchair when she is out due to her MS. Pt is followed up by Dr. Pugh for MS. - History Of Current Complaint Chief Complaint: EDGeneral Time Seen by Provider: 03/31/18 13:00 Hx Obtained From: Patient Hx Last Menstrual Period: post menopause Onset/Duration: Sudden Onset, Still Present Severity Initially: Moderate Severity Currently: None Character: Anxious Aggravating Factor(s): Nothing Alleviating Factor(s): Nothing Has Suicidal: Denies: Thoughts, With A Plan Has Homicidal: Denies: Thoughts, With A Plan - Allergies/Home Medications Allergies/Adverse Reactions: Allergies Allergy/AdvReac Type Severity Reaction Status Date / Time MS Pollen Extract Allergy Unknown Unknown Verified 02/10/18 14:54 [Pollen Extract] Reaction Details enviromental Allergy Mild stuffy nose Uncoded 02/10/18 14:54 perfumes Allergy Mild left arm Uncoded 02/10/18 14:54 gets numb and itching Home Medications: Home Medications ALPRAZolam TAB* [Xanax TAB*] 0.25 mg PO Q6H PRN MDD 4 03/31/18 [History Confirmed 03/31/18] Interferon Beta-1B [Betaseron] 0.3 mg SC Q2D 03/31/18 [History Confirmed ] Lisinopril TAB* [Prinivil TAB*] 2.5 mg PO DAILY 03/31/18 [History Confirmed ] Ramelteon (NF) [Rozerem (NF)] 8 mg PO BEDTIME 03/31/18 [History Confirmed ] Sertraline* [Zoloft*] 50 mg PO DAILY 03/31/18 [History Confirmed 03/31/18] PMH/Surg Hx/FS Hx/Imm Hx Endocrine/Hematology History: Reports: Hx Diabetes Cardiovascular History: Reports: Hx Hypertension - MEDS, Other Cardiovascular Problems/Disorders - murmer as a child Denies: Hx Pacemaker/ICD Respiratory History: Reports: Other Respiratory Problems/Disorders - sensative to perfumes, detergents per pt Denies: Hx Asthma GI History: Reports: Other GI Disorders - lump RLQ for 1 month History: Reports: Hx Renal Disease - CHRONIC RENAL INSUFFICIENCY, Other Problems/Disorders - hx MS, occassional bladder fulness sensation Musculoskeletal History: Reports: Other Musculoskeletal History - MS dx at age 16, uses WC for support Sensory History: Denies: Hx Hearing Aid Neurological History: Reports: Other Neuro Impairments/Disorders - hx panic disorder Psychiatric History: Reports: Hx Panic Disorder - ONCE SHE GETS ONTO TABLE SHE IS FINE/DIFFICULT GETTING ON TABLE - Surgical History Surgery Procedure, Year, and Place: tonsillectomy,. LAPROSCOPY- [facility]ALLOP[facility] TUBES Infectious Disease History: No Infectious Disease History: Denies: Hx Clostridium Difficile, Hx Hepatitis, Hx Human Immunodeficiency Virus (HIV), Hx of Known/Suspected MRSA, Hx Shingles, Hx Tuberculosis, Hx Known/ Suspected VRE, Hx Known/Suspected VRSA, History Other Infectious Disease, Traveled Outside the [place] in Last 30 Days - Family History Known Family History: Negative: Cardiac Disease - Social History Alcohol Use: None Substance Use Type: Reports: Marijuana Smoking Status (MU): Never Smoked Tobacco Review of Systems Negative: Fever, Chills Eyes: Negative Negative: Chest Pain Negative: Shortness Of Breath Gastrointestinal: Negative Psychological: Other - POS: panic attack Negative: Other - SI or HI All Other Systems Reviewed And Are Negative: Yes Physical Exam - Summary Physical Exam Summary: Appearance: The patient is well-nourished in no acute distress and in no acute pain. Skin: The skin is warm and dry and skin color reflects adequate perfusion. HEENT: The head is normocephalic and atraumatic. The pupils are equal and reactive. The conjunctivae are clear and without drainage. Nares are patent and without drainage. Mouth reveals moist mucous membranes and the throat is without erythema and exudate. The external ears are intact. The ear canals are patent and without drainage. The tympanic membranes are intact. Neck: the neck is supple with full range of motion and non-tender. There are no carotid bruits. There is no neck vein distension. Respiratory: Chest is non-tender. Lungs are clear to auscultation and breath sounds are symmetrical and equal. Cardiovascular: Heart is regular rate and rhythm. There is no murmur or rub auscultated. There is no peripheral edema and pulses are symmetrical and equal. Abdomen: The abdomen is soft and non-tender. There are normal bowel sounds heard in all four quadrants and there is no organomegaly palpated. Musculoskeletal: There is no back tenderness noted. Extremities are non-tender with full range of motion. There is good capillary refill. There is no peripheral edema or calf tenderness elicited. Neurological: Patient is alert and oriented to person, place and time. The patient has symmetrical motor strength in all four extremities. Cranial nerves are grossly intact. Deep tendon reflexes are symmetrical and equal in all four extremities. Psychiatric: The patient has an appropriate affect and does not exhibit any anxiety or depression. Triage Information Reviewed: Yes Vital Signs On Initial Exam: Initial Vitals Temp Pulse Resp BP Pulse Ox 97.6 F 88 12 129/66 98 03/31/18 12:38 03/31/18 12:38 03/31/18 12:38 03/31/18 12:38 03/31/18 12:38 Vital Signs Reviewed: Yes Diagnostics - Vital Signs Vital Signs Temp Pulse Resp BP Pulse Ox 03/31/18 12:38 97.6 F 88 12 129/66 98 - Laboratory Lab Statement: Any lab studies that have been ordered have been reviewed, and results considered in the medical decision making process. Course/Dx - Course Course Of Treatment: Ms. Lassiter presents by EMS. They report that the patient was very difficult to deal with and refusing to move out of the hallway of the place where she lives. She finally allowed them to go upstairs and get her on benzodiazepine that she takes for panic attacks and she took some. By the time she got to the emergency department she was feeling fine and behaving normally she reassured me that this was typical for her panic attacks and she was not feeling as though she was in any acute danger or danger to anyone else. - Differential Dx/Clinical Impression Provider Diagnosis: Panic attack Discharge - Sign-Out/Discharge Documenting (check all that apply): Discharge/Admit/Transfer - Discharge - Discharge Plan Condition: Stable Disposition: HOME Patient Education Materials: Panic Attack (ED) Referrals: Jeferson Krueger MD [Primary Care Provider] - Additional Instructions: Please follow up with your primary care provider in 2-3 days. RETURN TO THE ED FOR ANY WORSENING SYMPTOMS. - Billing Disposition and Condition Condition: STABLE Disposition: Home The documentation as recorded by the Rashid gomez Angela accurately reflects the service I personally performed and the decisions made by me, Syed Gardner MD.
== END 2018-03-31 13:27 | disposition home or self-care (01) ==
LOC: ED 12:25
DX: F41.0 Panic disorder [episodic paroxysmal anxiety] (principal); E11.9 Type 2 diabetes mellitus without complications; Z86.79 Personal history of other diseases of the circulatory system
CPT/HCPCS: 99283

== ENCOUNTER 2020-07-02 12:57 | Observation (INO) ==
[2020-07-02] MEDS ORDERED: NS 0.9% 1000 ml BAG 1,000 ML IV ONE (13:16)
[2020-07-02 14:57] LABS: ABS Eosinophils 0.2 10^3/ul (0-0.6); ABS Lymphocytes 1.2 10^3/ul (1.0-4.8); ABS Monocytes 0.4 10^3/ul (0-0.8); ABS Neutrophils 3.9 10^3/ul (1.5-7.7); Eosinophil % 4.1 %; Hematocrit 25 % (35-47); Hemoglobin 8.8 g/dL (12.0-16.0); Lymphocyte % 21.4 %; Mean Corpuscular HGB Conc 35 g/dL (31-36); Mean Corpuscular Hemoglobin 31 pg (27-31); Mean Corpuscular Volume 89 fL (80-97); Mean Platelet Volume 8.5 fL (7.4-10.4); Platelet Count 180 10^3/uL (150-450); Red Blood Count 2.85 10^6 /uL (3.70-4.87); Red Cell Distribution Width 17 % (10-15); White Blood Count 5.7 10^3/uL (3.5-10.8)
[2020-07-02 15:17] LABS: Troponin I 0.01 ng/mL (<0.03)
[2020-07-02 15:19] LABS: Albumin 4.4 g/dL (3.2-5.2); Albumin/Globulin Ratio 1.2 (1-3); BUN/Creatinine Ratio 18.8 (8-20); Calcium 11.2 mg/dL (8.6-10.3); EGFR African American 24.3 (>60); EGFR Non-African American 20.1 (>60); Globulin 3.6 g/dL (2-4); Magnesium 1.9 mg/dL (1.9-2.7); Potassium 3.8 mmol/L (3.5-5.0); Total Bilirubin 0.3 mg/dL (0.2-1.0)
[2020-07-02 15:25] LABS: TSH Ultra Thyroid Stim Horm 2.26 mcIU/mL (0.34-5.60)
[2020-07-02] MEDS ORDERED: Iron Sucrose 20 MG/ML 5 ML VIAL IV PUSH SCH (16:00)
[2020-07-02] MEDS ORDERED: NS 0.9% IVPB SCH (18:30)
[2020-07-02] MEDS ORDERED: IRON SUCROSE IVPB SCH (18:30)
[2020-07-02 21:05] LABS: Urine Appearance Cloudy; Urine Bilirubin Negative (Negative); Urine Blood Negative (Negative); Urine Color Yellow; Urine Glucose Negative (Negative); Urine Ketones Negative (Negative); Urine Nitrite Negative (Negative); Urine Protein 1+(30 mg/dL) (Negative); Urine Specific Gravity 1.009 (1.010-1.030); Urine Urobilinogen Negative (Negative)
[2020-07-02 21:11] LABS: Urine Bacteria 1+ (Absent); Urine Red Blood Cell Trace(0-2/hpf) (Absent); Urine Squamous Epithelial Cell Present (Absent); Urine White Blood Cell Trace(0-5/hpf) (Absent)
[2020-07-02] MEDS: Heparin 5000 UNITS/ML 1 mL VIAL SUBCUT SCH (22:35)
[2020-07-03] MEDS: Heparin 5000 UNITS/ML 1 mL VIAL SUBCUT SCH ×3 (05:33→22:27)
[2020-07-03 08:53] LABS: ABS Eosinophils 0.3 10^3/ul (0-0.6); ABS Lymphocytes 1.2 10^3/ul (1.0-4.8); ABS Monocytes 0.3 10^3/ul (0-0.8); ABS Neutrophils 3.4 10^3/ul (1.5-7.7); Eosinophil % 5.3 %; Hematocrit 23 % (35-47); Hemoglobin 7.2 g/dL (12.0-16.0); Lymphocyte % 22.1 %; Mean Corpuscular HGB Conc 32 g/dL (31-36); Mean Corpuscular Hemoglobin 29 pg (27-31); Mean Corpuscular Volume 89 fL (80-97); Mean Platelet Volume 8.2 fL (7.4-10.4); Platelet Count 173 10^3/uL (150-450); Red Blood Count 2.53 10^6 /uL (3.70-4.87); Red Cell Distribution Width 17 % (10-15); White Blood Count 5.2 10^3/uL (3.5-10.8)
[2020-07-03] MEDS ORDERED: Influenza VAC *QUAD* 2020-21* 0.5 ML SYRINGE IM ONE (09:00)
[2020-07-03 09:12] LABS: BUN/Creatinine Ratio 20.1 (8-20); Calcium 10.2 mg/dL (8.6-10.3); EGFR African American 27.6 (>60); EGFR Non-African American 22.8 (>60); Potassium 4.1 mmol/L (3.5-5.0)
[2020-07-03] MEDS ORDERED: Iron Sucrose 200 MG in NS 0.9% 100 ml BAG 100 ML IVPB ONE (15:00)
[2020-07-04] MEDS: Heparin 5000 UNITS/ML 1 mL VIAL SUBCUT SCH ×2 (05:44→15:11)
[2020-07-04 06:37] LABS: ABS Eosinophils 0.2 10^3/ul (0-0.6); ABS Lymphocytes 1.3 10^3/ul (1.0-4.8); ABS Monocytes 0.4 10^3/ul (0-0.8); Eosinophil % 4.1 %; Hematocrit 22 % (35-47); Hemoglobin 7.4 g/dL (12.0-16.0); Lymphocyte % 21.5 %; Mean Corpuscular HGB Conc 34 g/dL (31-36); Mean Corpuscular Hemoglobin 30 pg (27-31); Mean Corpuscular Volume 87 fL (80-97); Mean Platelet Volume 7.7 fL (7.4-10.4); Platelet Count 169 10^3/uL (150-450); Red Blood Count 2.48 10^6 /uL (3.70-4.87); Red Cell Distribution Width 17 % (10-15); White Blood Count 5.9 10^3/uL (3.5-10.8)
[2020-07-04 06:50] LABS: BUN/Creatinine Ratio 17.9 (8-20); Calcium 10.1 mg/dL (8.6-10.3); EGFR African American 27.1 (>60); EGFR Non-African American 22.4 (>60); Magnesium 1.6 mg/dL (1.9-2.7); Potassium 4.2 mmol/L (3.5-5.0)
[2020-07-04] MEDS ORDERED: Magnesium Sulfate 2 gm BAG 2 GM/50 ML BAG IVPB ONE (07:10)
[2020-07-04] MEDS ORDERED: Iron Sucrose 200 MG in NS 0.9% 100 ml BAG 100 ML IVPB ONE (14:00)
[2020-07-04] MEDS ORDERED: IRON SUCROSE IVPB ONE (14:30)
[2020-07-04] MEDS ORDERED: NS 0.9% IVPB ONE (14:30)
[2020-07-04 15:44] VITALS: BP 113/57
== END 2020-07-04 15:50 | disposition home or self-care (01) ==
LOC: MED 12:57 → ED 12:57 → INTOOBSV 17:27 → MED 18:10
PROVIDERS: ADMIT Internal Medicine; ATTEND Internal Medicine

== ENCOUNTER 2021-02-20 21:56 | Observation (INO) ==
[2021-02-20] MEDS ORDERED: NS 0.9% 1000 ml BAG 1,000 ML IV.FLUID IV ONE (23:16)
[2021-02-20] MEDS ORDERED: Ondansetron 4 mg VIAL 2 MG/ML 2 ml VIAL IV ONE (23:21)
[2021-02-21 00:03] LABS: Urine Appearance Clear; Urine Bilirubin Negative (Negative); Urine Blood 1+ (Negative); Urine Color Yellow; Urine Glucose Negative (Negative); Urine Ketones Negative (Negative); Urine Nitrite Negative (Negative); Urine Protein 2+(100 mg/dL) (Negative); Urine Specific Gravity 1.011 (1.002-1.030); Urine Urobilinogen Negative (Negative)
[2021-02-21 00:07] LABS: Urine Bacteria Absent (Absent); Urine Red Blood Cell 1+(3-5/hpf) (Absent); Urine Squamous Epithelial Cell Present (Absent); Urine White Blood Cell Absent (Absent)
[2021-02-21 00:46] LABS: ABS Eosinophils 0.1 10^3/ul (0-0.6); ABS Lymphocytes 0.1 10^3/ul (1.0-4.8); ABS Monocytes 0.5 10^3/ul (0-0.8); ABS Neutrophils 8.7 10^3/ul (1.5-7.7); Eosinophil % 1.4 %; Hematocrit 35 % (35-47); Hemoglobin 11.1 g/dL (12.0-16.0); Mean Corpuscular HGB Conc 32 g/dL (31-36); Mean Corpuscular Hemoglobin 28 pg (27-31); Mean Corpuscular Volume 89 fL (80-97); Mean Platelet Volume 7.9 fL (7.4-10.4); Platelet Count 202 10^3/uL (150-450); Red Blood Count 3.96 10^6 /uL (3.70-4.87); Red Cell Distribution Width 18 % (10-15); White Blood Count 9.4 10^3/uL (3.5-10.8)
[2021-02-21 00:55] LABS: Activated Partial Thrombo Time 20.9 seconds (26.0-38.0); INR 1.11 (0.82-1.09)
[2021-02-21 01:03] LABS: ALT 12 U/L (7-52); AST 19 U/L (13-39); Albumin 4.2 g/dL (3.2-5.2); Albumin/Globulin Ratio 1.2 (1-3); Alkaline Phosphatase 62 U/L (35-149); Anion Gap 13 mmol/L (2-11); Blood Urea Nitrogen 58 mg/dL (6-24); C Reactive Protein 2.94 mg/L (<8.01); CO2 Carbon Dioxide 18 mmol/L (22-32); Calcium 10.4 mg/dL (8.6-10.3); Chloride 108 mmol/L (101-111); EGFR African American 23.1 (>60); EGFR Non-African American 19.1 (>60); Globulin 3.6 g/dL (2-4); Glucose 139 mg/dL (70-100); Lipase 84 U/L (11.0-82.0); Potassium 3.5 mmol/L (3.5-5.0); Sodium 139 mmol/L (135-145); Total Protein 7.8 g/dL (6.4-8.9)
[2021-02-21 01:22] LABS: Troponin I 0.03 ng/mL (<0.03)
[2021-02-21] MEDS ORDERED: Ondansetron 4 mg VIAL 2 MG/ML 2 ml VIAL IV ONE (01:22)
[2021-02-21] MEDS ORDERED: LORazepam 2 mg VIAL 1 ml IV PUSH ONE (01:40)
[2021-02-21] MEDS ORDERED: Lorazepam PYXIS KEY PRN (01:40)
[2021-02-21 06:40] LABS: Troponin I 0.05 ng/mL (<0.03)
[2021-02-21] MEDS ORDERED: methylPREDNISolone SOD SUCC 1000 MG ML VIAL IVPB ONE (08:44)
[2021-02-21] MEDS ORDERED: Diazepam INJ CARPUJECT 5 MG/ML IV ONE ×2 (08:55→11:14)
[2021-02-21] MEDS ORDERED: methylPREDNISolone SOD SUCC 1,000 MG in NS 0.9% 250 ml 250 ML IVPB ONE (10:00)
[2021-02-21] MEDS ORDERED: Gadoteridol (CONTRAST) 279.3 MG/ML 10 ML IV ONE (13:53)
[2021-02-21 13:56] LABS: Troponin I 0.04 ng/mL (<0.03)
[2021-02-22] MEDS: Heparin 5000 UNITS/ML 1 mL VIAL SUBCUT SCH ×2 (14:19→20:46)
[2021-02-23 04:53] LABS: EGFR African American 23.3 (>60); EGFR Non-African American 19.2 (>60)
[2021-02-23] MEDS: Heparin 5000 UNITS/ML 1 mL VIAL SUBCUT SCH (05:56)
[2021-02-23 11:28] VITALS: BP 94/53
== END 2021-02-23 14:20 | disposition home or self-care (01) ==
LOC: SSU 21:56 → ED 21:56 → SSU 02-21 11:38
PROVIDERS: ADMIT Student in an Organized Health Care Education/Training Program; ATTEND Internal Medicine